=== PATIENT | female | born 1940 | race Caucasian/White ===

== ENCOUNTER 2016-12-23 06:36 | Inpatient (IN) | payer MEDICARE, OTHER ==
--- NOTE | ~2016-12-23 | DS ---
Discharge Summary [facility] [address] [facility] [place]. [address] NAME: MAI GARZA : 44 STATUS : DIS IN PAT#: [id number] AGE: 76 ADM/REG DATE : 12/23/16 MR#: [id number] REPORT SERV DATE: 12/26/16 DICTATED BY: CARMEN DSOUZA DATE: 12/25/16 REPORT STATUS : Draft TRANSCRIBED BY: MODL DATE: 12/25/16 ADMISSION DATE: 12/23/2016 DISCHARGE DATE: 12/25/2016 DISCHARGE DIAGNOSES: 1. Syncope. 2. Status post fall. 3. Echocardiogram showed mild decreased ejection fraction; however, the catheterization did not show any evidence of decreased ejection fraction. 4. Hypertensive urgency. 5. Chronic pain with a high tolerance of opioid. 6. Obesity. 7. History of deep venous thrombosis, and the patient has been on Xarelto. HISTORY OF PRESENT ILLNESS: This is a 76-year-old female patient, who was transferred from [facility] for the cardiac cath. After she presented to [facility] with a syncopal episode an echocardiogram showed a slightly decreased ejection fraction. Please see dictated interim discharge summary done by Dr. Ch. HOSPITAL COURSE: She was transferred to [facility], had a cardiac catheterization, did not show any significant abnormalities from her cardiac cath. It showed patent proximal LAD stent and it showed ejection fraction of 55% without mitral regurgitation, it showed end- diastolic pressure of 9. After that she was kept in the hospital for two more days due to the chronic pain issue. Mainly her pain was chronic back pain and she claims that she had a fall and had a new onset pain; however, she was evaluated twice with MRI and an x-ray, did not show any acute fractures. Also, seen by the physical therapist, and she was able to ambulate without significant assistance at all. The patient did not recommend any rehab. She was ambulating with a walker. She is back to her baseline functional status. She will be discharged to home and continue home health and home PT. The main issue was again the opioids and pain management. She goes to [facility]; however, she does not think it is enough, but she missed two appointments recently because she was in the hospital. Therefore, we are providing her home pain management which is oxycodone 10 mg twice a day and we are adding long-acting 10 mg once at nighttime, and highly recommend the patient to go back to Pain Management to continue her treatment. Time to time she was saying that she is not going back to them because this is not helping very much. And again I had a long conversation with the patient, the patient will continue to keep the relationship with the Pain Management in order to get chronic pain management. Also I talked to the daughter regarding her issue and plan of care, and they all voiced understanding. DISCHARGE MEDICATIONS: Oxycodone 10 mg twice a day as needed, and OxyContin 10 mg once at Discharge Summary [place] [id number] [place]. [address] NAME: MAI GARZA : 44 STATUS : DIS IN PAT#: [id number] AGE: 76 ADM/REG DATE : 12/23/16 MR#: [id number] REPORT SERV DATE: 12/26/16 DICTATED BY: CARMEN DSOUZA DATE: 12/25/16 REPORT STATUS : Draft TRANSCRIBED BY: JULY DATE: 12/25/16 nighttime and the other home medications are the same; however, hydrochlorothiazide 25 mg once a day was added for her uncontrolled hypertension and it has been well tolerated. TIME SPENT: More than 30 minutes. DISPOSITION: The patient is discharged to home in stable condition with home health and home PT, and also highly recommended going back to the Pain Management. EKL/MODL Carmen Dsouza M.D. / [id number] CC: Robel Parrish MD
[~2016-12-23 06:36] MED LIST: ACET500CAP PO; CARDCD120 PO; DILT-XR120 MG PO; DSS PO; ENDOCET1 TA3 PO; FERROUS SULF325 M1 PO; HALF81 PO; KLOR-CON M2020 MEQ PO; LEVOTHYROXIN100 MCG PO; LEXAPRO10 PO; LEXAPRO20 PO; MAGOX4 PO; MIRALAX POWDER1 PKT PO; NYSTATPOW TOP; OMNICEF300 PO; OXYCOD PO; PLAVIX PO; PROTONIX PO; REM15 PO; SYN1 PO; TESSALON200 MG PO; VITAMIN B-121000 MC1 SL; VITAMIN C OTC PO; VITAMIN D1000 UNI1 PO; VITC500 PO; X25 PO; XARELTO15 MG PO; ZOCOR10 PO; ZOCOR20 PO
[2016-12-24 05:26] LABS: BUN (BLOOD UREA NITROGEN) 27 MG/DL (6-23); CALCIUM, SERUM 9.6 MG/DL (8.5-10.4); CHLORIDE, SERUM 107 MMOL/L (96-112); CO2 (CARBON DIOXIDE) 27 MMOL/L (24-34); CREATININE 1.13 MG/DL (0.55-1.02); GFR AFRICAN AMERICAN 55 ML/MIN (>=60); GFR NON AFRICAN AMERICAN 48 ML/MIN (>=60); POTASSIUM, SERUM 4.3 MMOL/L (3.5-5.3); SODIUM, SERUM 141 MMOL/L (135-148)
[2016-12-24 05:39] LABS: GLUCOSE, SERUM 155 MG/DL (60-99)
[2016-12-25 07:08] LABS: CALCIUM, SERUM 9.7 MG/DL (8.5-10.4); CHLORIDE, SERUM 107 MMOL/L (96-112); CO2 (CARBON DIOXIDE) 28 MMOL/L (24-34); CREATININE 1.11 MG/DL (0.55-1.02); GFR AFRICAN AMERICAN 57 ML/MIN (>=60); GFR NON AFRICAN AMERICAN 49 ML/MIN (>=60); GLUCOSE, SERUM 168 MG/DL (60-99); POTASSIUM, SERUM 4.5 MMOL/L (3.5-5.3); SODIUM, SERUM 143 MMOL/L (135-148)
[2016-12-25 07:10] LABS: BUN (BLOOD UREA NITROGEN) 34 MG/DL (6-23)
[2016-12-25] MEDS ORDERED: OXYCOD PO (11:28)
[2016-12-25] MEDS ORDERED: OXYCON10 PO (11:28)
[2016-12-25] MEDS ORDERED: HYDROCHLOROT25 MG PO (11:29)
[2017-03-07] MEDS ORDERED: NEUR600 (01:08)
[2017-03-07] MEDS ORDERED: KLOR-CON M2020 MEQ PO (01:10)
[2017-03-07] MEDS ORDERED: PROZAC PO (01:10)
[2017-03-07] MEDS ORDERED: NOVOLOG SC (01:43)
[2017-04-07] MEDS ORDERED: REST15 PO (17:11)
[2017-04-07] MEDS ORDERED: PERCOCET 10/3251 TAB PO (17:11)
[2017-04-07] MEDS ORDERED: MAGOX4 PO (17:11)
[2017-04-07] MEDS ORDERED: CARDCD120 PO (17:12)
[2017-04-07] MEDS ORDERED: FERROUS SULF325 M1 PO (17:12)
[2017-04-07] MEDS ORDERED: PROZAC PO (17:12)
[2017-04-07] MEDS ORDERED: PROTONIX PO (17:13)
[2017-04-07] MEDS ORDERED: LEVOTHYROXIN50 MCG PO (17:13)
[2017-04-07] MEDS ORDERED: L20 PO (17:13)
[2017-04-07] MEDS ORDERED: KLOR-CON M2020 MEQ PO (17:14)
[2017-04-07] MEDS ORDERED: XARELTO15 MG PO (17:14)
[2017-04-07] MEDS ORDERED: NEUR600 PO (17:14)
[2017-04-07] MEDS ORDERED: T PO (17:15)
[2017-04-07] MEDS ORDERED: ZOCOR20 PO (17:15)
[2017-04-07] MEDS ORDERED: NOVOLOG SC (17:16)
== END 2016-12-25 14:19 | disposition home health service (06) | DRG 287 ==
LOC: CORLMH 06:36 → SSU1 08:47 → 5NO 18:49
PROVIDERS: Internal Medicine
PROC: 4A023N7 Measurement of Cardiac Sampling and Pressure, Left Heart, Percutaneous Approach (ICD-10-PCS; principal; 2016-12-23)
PROC: B2111ZZ Fluoroscopy of Multiple Coronary Arteries using Low Osmolar Contrast (ICD-10-PCS; 2016-12-23)
PROC: B2151ZZ Fluoroscopy of Left Heart using Low Osmolar Contrast (ICD-10-PCS; 2016-12-23)
DX: R07.9 Chest pain, unspecified (principal); Z99.81 Dependence on supplemental oxygen; I48.0 Paroxysmal atrial fibrillation; E11.9 Type 2 diabetes mellitus without complications; N39.0 Urinary tract infection, site not specified; E03.9 Hypothyroidism, unspecified; E78.5 Hyperlipidemia, unspecified; R55 Syncope and collapse; I16.0 Hypertensive urgency; M54.9 Dorsalgia, unspecified; K21.9 Gastro-esophageal reflux disease without esophagitis; I44.0 Atrioventricular block, first degree; G89.29 Other chronic pain; S83.92XA Sprain of unspecified site of left knee, initial encounter; W18.39XA Other fall on same level, initial encounter; Z95.5 Presence of coronary angioplasty implant and graft; Z88.5 Allergy status to narcotic agent; Z86.718 Personal history of other venous thrombosis and embolism; Z91.041 Radiographic dye allergy status; Z96.653 Presence of artificial knee joint, bilateral; Z85.3 Personal history of malignant neoplasm of breast; Z90.49 Acquired absence of other specified parts of digestive tract; Z79.01 Long term (current) use of anticoagulants; Z87.891 Personal history of nicotine dependence
CPT/HCPCS: 70450; 71010; 72100; 73560-LT; 80048; 81001; 82550; 82553; 82962; 83036; 83605; 83735; 84439; 84443; 84484; 85025; 85610; 85730; 87040; 93005; 93458; 96374; 96375; 97161-GP; 99152; 99153; 99285; A9270-GY; C1769; C1887; C1894; G8978-CK-GP; G8979-CJ-GP; J0360; J1170; J1200; J2250; J2270; J2405; J3010; J3475; Q9967